=== PATIENT | female | born 1960 | race Caucasian/White ===

== ENCOUNTER 2018-01-08 19:38 | Emergency (ER) | payer OTHER ==
[~2018-01-08] VITALS: Ht 175.3 cm; Wt 72.7 kg
[~2018-01-08 19:38] MED LIST: CELEXA20 M1 OR; COUGHTAB200 MG OR; KLONOPIN0.5 MG OR; KLONOPIN1 MG OR; LORTAB 5 OR; NEURONTIN300 MG OR; OXYCODONE HCL15 MG PO; SUDAFED30 MG OR; VALTREX500 MG OR
[2018-01-08 20:12] LABS: HEMATOCRIT 39.9 % (37.0-47.0); IMMATURE GRANULOCYTES 0.3 % (0.0-5.0); MEAN CORPUSCULAR HGB 32.4 pG CALC (26.0-32.0); MEAN CORPUSCULAR HGB CONC 35.1 g/L CALC (32.0-36.0); NEUT# 5.75 thou/uL (2.00-7.15); RED BLOOD COUNT 4.32 mill/uL (4.20-5.60); RED CELL DISTRI WIDTH 12.1 % (11.5-15.5)
[2018-01-08 20:18] LABS: MEAN CELL VOLUME 92.4 fL CALC (80.0-100.0)
[2018-01-08 20:31] LABS: ALBUMIN 4.4 g/dL (3.2-5.0); ALKALINE PHOSPHATASE 55 u/l (38-126); ANION GAP 14 (6-22 (CALC)); BILIRUBIN, TOTAL 0.6 mg/dL (0.0-1.4); BUN 15 mg/dL (7-17); BUN/CREATININE RATIO 21 (12-20 (CALC)); CARBON DIOXIDE 25 mmol/l (22-30); CHLORIDE 106 mmol/l (95-108); CREATININE 0.7 mg/dL (0.5-1.0); GFR > 60 ML/MIN (>=60 (CALC)); GFR FOR AFR.AMER. > 60 ML/MIN (>=60 (CALC)); POTASSIUM 3.8 mmol/l (3.5-5.1); SGOT/AST 26 u/l (14-36); SODIUM 142 mmol/l (137-146); TOTAL PROTEIN 7.1 g/dL (6.3-8.2)
[2018-01-08 20:36] LABS: ACT PARTIAL THROMBO TIME 25.4 SECONDS (20.0-32.5); PROTHROMBIN TIME 10.2 SECONDS (9.0-12.5)
[2018-01-08 20:43] LABS: MYOGLOBIN 33 ng/mL (0 - 62)
[2018-01-08 20:45] LABS: D-DIMER 0.27 mg/L (0.19-0.60)
[2018-01-08] MEDS ORDERED: METO50TA52 PO (21:02)
[2018-01-08 21:54] VITALS: BP 170/92
== END 2018-01-08 21:55 | disposition home or self-care (01) | DRG 310 ==
LOC: ED 19:38
PROVIDERS: Family Medicine
DX: R00.2 Palpitations (principal); R07.9 Chest pain, unspecified; I10 Essential (primary) hypertension

== ENCOUNTER 2019-08-05 | Emergency (ER) | payer OTHER ==
[~2019-08-05] MED LIST changes: +METO50TA52 PO
[2019-08-05] MEDS ORDERED: GABAPENTIN300 M2 PO (16:12)
[2019-08-05] MEDS ORDERED: OXYCODONE HYDRO15 MG PO (16:12)
[2019-08-05] MEDS ORDERED: VENLAFAXINE HCL75 M1 PO (16:13)
[2019-08-05] MEDS ORDERED: DULOXETINE HCL30 MG PO (16:13)
[2019-08-05] MEDS ORDERED: METOPROLOL SUCC50 MG PO (16:14)
[2019-08-05 16:24] LABS: HEMATOCRIT 43.8 % (37.0-47.0); HEMOGLOBIN 14.9 g/dl (12.0-16.0); IMMATURE GRANULOCYTES 0.1 % (0.0-5.0); MEAN CELL VOLUME 94.6 fL CALC (80.0-100.0); MEAN CORPUSCULAR HGB 32.2 pG CALC (26.0-32.0); NEUT# 4.46 thou/uL (2.00-7.15); RED BLOOD COUNT 4.63 mill/uL (4.20-5.60); RED CELL DISTRI WIDTH 12.3 % (11.5-15.5)
[2019-08-05 16:37] LABS: ALBUMIN 4.6 g/dL (3.2-5.0); ALKALINE PHOSPHATASE 50 u/l (38-126); ANION GAP 12 (6-22 (CALC)); BILIRUBIN, TOTAL 0.8 mg/dL (0.0-1.4); BUN 13 mg/dL (7-17); BUN/CREATININE RATIO 15 (12-20 (CALC)); CARBON DIOXIDE 28 mmol/l (22-30); CHLORIDE 103 mmol/l (95-108); CREATININE 0.9 mg/dL (0.5-1.0); GFR > 60 ML/MIN (>=60 (CALC)); GFR FOR AFR.AMER. > 60 ML/MIN (>=60 (CALC)); POTASSIUM 4.4 mmol/l (3.5-5.1); SGOT/AST 29 u/l (14-36); SODIUM 139 mmol/l (137-146); TOTAL PROTEIN 7.7 g/dL (6.3-8.2)
[2019-08-05 16:46] LABS: ACT PARTIAL THROMBO TIME 26.2 SECONDS (20.0-32.5); PROTHROMBIN TIME 10.3 SECONDS (9.0-12.5)
[2019-08-05 16:49] LABS: MYOGLOBIN 25 ng/mL (0 - 62)
[2019-08-05] MEDS ORDERED: NARCAN4 MG/0.1 M (17:43)
[2019-08-05] MEDS ORDERED: PROMETHAZINE12.5 MG PO (17:44)
[2019-08-05] MEDS ORDERED: ESTRACE1 MG PO (17:45)
[2019-08-05] MEDS ORDERED: SUMATRIPTAN25 MG PO (17:45)
[2019-08-05] MEDS ORDERED: PROAIR HFA108 MCG/AC IN (18:54)
[2019-08-05] MEDS ORDERED: ZPAK PO (18:54)
[2019-08-05] MEDS ORDERED: TESSALON PERLE100 MG PO (18:54)
--- NOTE | 2019-08-08 10:15 | NUR ---
Notified patient of Covid results (Negative). Advised patient to follow up with PCP or return to ED with urgent needs. Advised patient to continue practicing Covid prevention. Patient verbalized understanding.
== END 2019-08-05 19:29 | disposition home or self-care (01) | DRG 203 ==
PROVIDERS: Emergency Medicine
DX: J40 Bronchitis, not specified as acute or chronic (principal); Z20.828 Contact with and (suspected) exposure to other viral communicable diseases

== ENCOUNTER 2022-03-28 11:53 | Emergency (ER) | payer OTHER ==
[~2022-03-28] VITALS: Ht 175.3 cm; Wt 73.0 kg
[~2022-03-28 11:53] MED LIST changes: +DULOXETINE HCL30 MG PO; +ESTRACE1 MG PO; +GABAPENTIN300 M2 PO; +METOPROLOL SUCC50 MG PO; +NARCAN4 MG/0.1 M; +OXYCODONE HYDRO15 MG PO; +PROAIR HFA108 MCG/AC IN; +PROMETHAZINE12.5 MG PO; +SUMATRIPTAN25 MG PO; +TESSALON PERLE100 MG PO; +VENLAFAXINE HCL75 M1 PO; +ZPAK PO
[2022-03-28 12:02] VITALS: BP 153/98
[2022-03-28 12:27] LABS: BASO% 1.2 % (0-3); EOS% 0.5 % (0-8); HEMOGLOBIN 13.2 g/dl (12.0-16.0); IMMATURE GRANULOCYTES 0.2 % (0.0-5.0); LYMPH% 15.1 % (15-41); MEAN CELL VOLUME 94.9 fL CALC (80.0-100.0); MEAN CORPUSCULAR HGB 33.9 pG CALC (26.0-32.0); MEAN CORPUSCULAR HGB CONC 35.8 g/dL CAL (32.0-36.0); MONO% 6.7 % (2-13); NEUT# 4.57 thou/uL (2.00-7.15); NEUT% 76.3 % (42-76); RED BLOOD COUNT 3.89 mill/uL (4.20-5.60); RED CELL DISTRI WIDTH 11.7 % (11.5-15.5)
[2022-03-28 12:31] VITALS: BP 150/115
[2022-03-28 12:31] LABS: HEMATOCRIT 36.9 % (37.0-47.0)
[2022-03-28 12:38] LABS: ALBUMIN 4.2 g/dL (3.2-5.0); ALKALINE PHOSPHATASE 58 u/l (38-126); ANION GAP 9 (6-22 (CALC)); BUN 9 mg/dL (8-23); BUN/CREATININE RATIO 12 (12-20 (CALC)); CARBON DIOXIDE 27 mmol/l (22-30); CHLORIDE 108 mmol/l (95-108); CREATININE 0.8 mg/dL (0.5-1.0); GFR FOR AFR.AMER. > 60 ML/MIN (>=60 (CALC)); GFR OTHER RACES > 60 ML/MIN (>=60 (CALC)); SGOT/AST 37 u/l (9-36); SODIUM 140 mmol/l (137-146); TOTAL PROTEIN 6.9 g/dL (6.3-8.2)
[2022-03-28 12:39] LABS: BILIRUBIN, TOTAL 0.3 mg/dL (0.0-1.4)
[2022-03-28 12:46] VITALS: BP 151/83
[2022-03-28 13:00] VITALS: BP 145/81
[2022-03-28 13:13] LABS: URINE BILIRUBIN - DIPSTICK NEGATIVE (NEGATIVE); URINE BLOOD DIPSTICK NEGATIVE (NEGATIVE); URINE COLOR YELLOW; URINE GLUCOSE - DIPSTICK NEGATIVE (NEGATIVE); URINE KETONE 15 mg/dL (NEGATIVE); URINE LEUK ESTERASE NEGATIVE (NEGATIVE); URINE PH 8.5 (4.5-8.0); URINE PROTEIN - DIPSTICK NEGATIVE (NEG-TRACE); URINE UROBILINOGEN - DIPSTICK 0.2 E.U./dL (0.2)
[2022-03-28 13:22] LABS: URINE NITRITE - DIPSTICK NEGATIVE (Negative)
[2022-03-28 13:30] VITALS: BP 150/79
[2022-03-28] MEDS ORDERED: ZOFRAN4 MG/TAB PO (13:50)
[2022-03-28 14:05] VITALS: BP 150/79
== END 2022-03-28 14:08 | disposition home or self-care (01) | DRG 948 ==
LOC: ED 11:53
PROVIDERS: Family Medicine
DX: R53.1 Weakness (principal); R11.0 Nausea